=== PATIENT | female | born 1975 | race Two or more races ===

== ENCOUNTER 2025-01-10 17:28 | Inpatient (IN) | payer OTHER ==
[~2025-01-10] VITALS: Ht 167.6 cm; Wt 74.5 kg
--- NOTE | 2025-01-10 17:41 | ED.PDOC ---
HPI (NEURO) HPI Comments HPI: Poor Historian. 49-year-old female brought in by her fiance for evaluation of a near-syncope episode that happened approximately 2 hours prior to arrival. This was this despite the son who is 14 years old. Patient states that she felt everything is moving around her and fell to the ground without any head or neck injury. She denies any loss of consciousness. Denies any actual pain anywhere in her body. Patient has associated nausea and vomiting since then. Patient appears weak. Patient states she is otherwise healthy does not take any medications at home. Active vomiting here in the ED Vitals Temperature: 97.0F Respiratory rate: 17 SpO2: 98%RA Heart rate: 77 Blood pressure: 155/101 Past Medical History: Cervical cancer Past Surgical History: Leep procedure REVIEW OF SYSTEMS: CONSTITUTIONAL: Denies acute: fever, diaphoresis, chills, HEAD: Denies acute: headache, photophobia Eyes: Denies acute: Double vision, vision loss, eye pain, eye discharge. EARS: Denies acute: tinnitus, hearing loss, ear discharge, ear pain, THROAT: Denies acute: sore throat, swelling, difficulty swallowing , pain with swallowing, change in voice. NECK: Denies acute: neck pain, neck swelling, stiff neck. HEART: Denies acute : chest pain, palpitations, LUNGS: Denies acute: SOB, wheezing, cough, hemoptysis ABDOMEN: Denies acute: abdominal pain, diarrhea, melena , hematemesis, hematochezia SKIN: Denies acute: rash, redness, lesions, itchiness. EXTREMITIES: Denies acute: calf pain, numbness, tingling, weakness, denies pain in extremity. Denies acute: Low back pain. Neuro: Denies acute: focal neurological deficit, motor or sensory focal neurological deficit, tremors, seizure like activity, confusion, change in mental status, loss of bowel or bladder function, cauda equina like symptoms. : Denies acute: dysuria, hematuria, flank pain, increase in urinary frequency. PSYCH: Denies acute: hallucination, suicidal ideation, homicidal ideation. FEMALE: Denies acute: abnormal vaginal bleeding, foul odor, unusual discharge. PHYSICAL EXAM: General: [id number] acute distress, awake and alert. Head: normocephalic, atraumatic. Neck: supple, trachea is midline, no swelling. Throat: Normal phonation. Eyes:, no erythema, no purulent discharge, no proptosis, no icterus. Heart: regular rate, regular rhythm, no significant murmur appreciated. Lungs: no apparent respiratory distress, Able to speak in full sentences. No wheezing, no rhonchi, no crackles. No stridors Clear to auscultation bilaterally. Abdomen: non tender to palpation, non distended, soft, no guarding, no rebound, + bowel sounds. Neuro: Awake, Alert, oriented to name, self, situation, follows commands GCS=15. Speech is normal. Skin: no petechia, no purpura, no cyanosis, non-pale, not jaundice. Lower extremities: --no - Pitting edema no deformity, no focal swelling, no calf TTP. Makes eye contact. moves all four extremities. Face: no apparent facial droop. PERRLA, EOM-I CN 2-12 are grossly intact, No nystagmus. No nuchal rigidity, Kernig's sign, Brudzinski's sign, no meningeal signs. 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 Was a procedure done?: No Differential Diagnosis (SZ) CVA: SAH General Weakness: Anemia, CVA, Dehydration, Dysrhythmia, Electrolyte imbalance, Encephalopathy, Guillain-Whitefield, Hypoglycemia, Hypotension, Hypovolemia, Labyrinthitis, Meniere's disease, Myasthenia gravis, Myocardial infarction, Pulmonary embolus, Renal failure, Repiratory failure, TIA, VBI, Vertigo: central, Vertigo: peripheral, Vestibular neuronitis X-Ray, Labs, Meds, VS Vital Signs Date Time Temp Pulse Resp B/P (MAP) Pulse Ox O2 Delivery O2 Flow Rate FiO2 01/10/25 21:35 87 16 100 Room Air* 0 21 21 01/10/25 21:20 97.7 82 22 149/109 (122) 100 97.7 01/10/25 17:44 97.0 77 17 155/101 (119) 98 97.0 Lab Test 01/10/25 21:30 01/10/25 21:02 01/10/25 20:07 01/10/25 19:05 Range/Units Urine Color Light-yellow Yellow Urine Clarity Turbid H Clear Urine pH 7.5 5.0-9.0 Urine Specific [place] 1.014 1.001-1.035 Urine Protein Trace H Negative Urine Ketones Negative Negative Urine Blood Negative Negative /uL Urine Nitrite Negative Negative Urine Bilirubin Negative Negative Urine Urobilinogen Normal Negative mg/dL Urine Leukocyte Esterase Negative Negative /uL Urine RBC 2 0 - 4 /hpf Urine Microscopic WBC 1 0-5 /HPF Urine Squamous Epithelial Cells None seen <5 /hpf Urine Bacteria None seen None Seen /hpf Urine Yeast (Budding) Occasional None Seen /hpf Urine Glucose 1+ H Normal mg/dL Urine Test Negative Negative Urine Opiates Screen Neg NEGATIVE Urine Fentanyl Screen Neg NEGATIVE Urine Barbiturates Screen Neg NEGATIVE Urine Phencyclidine Screen Neg NEGATIVE Urine Amphetamines Screen Neg NEGATIVE Urine Benzodiazepines Screen Neg NEGATIVE Urine Cocaine Screen Neg NEGATIVE Urine Cannabinoids Screen Neg NEGATIVE Chlamydia trachomatis (BOOKER) Pending Neisseria gonorrhoeae (BOOKER) Pending Troponin I High Sensitivity < 3 L < 3 L </=34 ng/L C-Reactive Protein High Sensitivity 0.16 <1.0 mg/dL Lactic Acid Level 3.7 *H 0.4-2.0 mmol/L Test 01/10/25 18:08 Range/Units White Blood Count 15.1 H 4.4-10.8 10^3/uL Red Blood Count 4.96 4.0-5.20 10^6/uL Hemoglobin 13.8 12.2-16.2 g/dL Hematocrit 41.4 36.0-46.0 % Mean Corpuscular Volume 83.5 80.0-100.0 fL Mean Corpuscular Hemoglobin 27.8 L 28.0-32.0 pg Mean Corpuscular Hemoglobin Concent 33.3 32.0-36.0 g/dL Red Cell Distribution Width 13.4 11.8-14.3 % Platelet Count 250 140-450 10^3/uL Mean Platelet Volume 8.5 6.9-10.8 fL Neutrophils (%) (Auto) 80.0 37.0-80.0 % Lymphocytes (%) (Auto) 15.1 10.0-50.0 % Monocytes (%) (Auto) 4.4 0.0-12.0 % Eosinophils (%) (Auto) 0.2 0.0-7.0 % Basophils (%) (Auto) 0.3 0.0-2.0 % Neutrophils # (Auto) 12.1 H 1.6-8.6 10 ^3/uL Lymphocytes # (Auto) 2.3 0.4-5.4 10 ^3/uL Monocytes # (Auto) 0.7 0-1.3 10 ^3/uL Eosinophils # (Auto) 0 0-0.8 10 ^3/uL Basophils # (Auto) 0 0-0.2 10 ^3/uL Nucleated Red Blood Cells 0.0 % Sodium Level 141 136-145 mmol/L Potassium Level 3.6 3.5-5.1 mmol/L Chloride Level 106 98-107 mmol/L Carbon Dioxide Level 25 20-31 mmol/L Anion Gap 10 5-15 Blood Urea Nitrogen 11 9-23 mg/dL Creatinine 0.63 0.550-1.02 mg/dL Glomerular Filtration Rate Calc 107 >90 mL/min BUN/Creatinine Ratio 17.5 10.0-20.0 Serum Glucose 152 H 74-106 mg/dL Lactic Acid Level 3.4 *H 0.4-2.0 mmol/L Calcium Level 10.1 8.7-10.4 mg/dL Magnesium Level 1.8 1.6-2.6 mg/dL Total Bilirubin 0.5 0.2-1.0 mg/dL Aspartate Amino Transferase (AST) 26 13-40 U/L Alanine Aminotransferase (ALT) 63 H 7-40 U/L Alkaline Phosphatase 127 H 46-116 U/L Troponin I High Sensitivity < 3 L </=34 ng/L Total Protein 7.9 5.7-8.2 g/dL Albumin 5.1 H 3.2-4.8 g/dL HIV (1&2) Antibody Pending Current Medications Medications (Trade) Dose Ordered Sig/Carlos Route Start Time Stop Time Status Last Admin Sodium Chloride 1,000 ml @ 1,000 mls/hr Q1H ONCE IV 01/10/25 17:45 01/10/25 18:44 DC 01/10/25 21:00 Ondansetron HCl (Zofran) 8 mg ONCE ONCE IV 01/10/25 17:45 01/10/25 17:46 DC 01/10/25 21:27 Meclizine HCl (Antivert Tablet) 25 mg ONCE ONCE PO 01/10/25 17:45 01/10/25 17:46 DC 01/10/25 21:27 Ceftriaxone Sodium 50 ml @ 100 mls/hr ONCE ONCE IV 01/10/25 19:00 01/10/25 19:29 DC 01/10/25 21:22 Sodium Chloride 1,000 ml @ 1,000 mls/hr Q1H ONCE IV 01/10/25 20:00 01/10/25 20:59 DC 01/10/25 22:00 [place] [id number] Ph: [phone] DIAGNOSTIC IMAGING Diagnostic Imaging Report : [id number] Signed PATIENT: ARAMIS NJ ACCT: [id number] UNIT: [id number] : 1975 LOC: ER ROOM / BED: / AGE / SEX: 49 / F ADM STATUS: REG ER SERVICE 174 ORDERING PHYSICIAN: ESSIE BATISTA DO PROCEDURE(s): HWOCT - HEAD WITHOUT CONTRAST REASON: dizzy ORDER NUMBER(s): [id number], ACCESSION NUMBER(s): [id number] EXAM: CT HEAD WITHOUT CONTRAST INDICATION: dizzy TECHNIQUE: CT of the head without intravenous contrast. Radiation Dose Information: CT Dose: CTDI volume is 55.11 mGy. Dose-length product is 1086.04 mGy*cm The dose indicators for CT are the volume Computed Tomography (CT) Dose Index (CTDIvol) and the Dose Length Product (DLP), and are measured in units of mGy and mGy-cm, respectively. These indicators are not patient dose, but values generated from the CT scanner acquisition factors. The report includes radiation exposure data for exposures received during this examination. COMPARISON: None FINDINGS: There is no evidence of acute intracranial hemorrhage, extra-axial collection, mass effect, midline shift, herniation or hydrocephalus. The ventricles, sulci and cisterns are age appropriate. The quintana-white differentiation is intact. Patchy periventricular and subcortical white matter hypoattenuation is nonspecific but may be related to small vessel ischemic disease. The visualized paranasal sinuses and mastoid air cells are clear. The surrounding soft tissues and osseous structures are unremarkable. IMPRESSION: 1. No acute intracranial hemorrhage 2. No CT findings of territorial ischemia. 3. No CT findings of displaced skull fracture. ATED BY: JOSSELINE KOLB Jr., DO DICTATED DATE/TIME: 01/10/251810 SIGNED BY: JOSSELINE KOLB Jr., DO SIGNED DATE/TIME: 01/10/251810 CC: [place] [address] Ph: [phone] DIAGNOSTIC IMAGING Diagnostic Imaging Report : [id number] Signed PATIENT: ARAMIS NJ ACCT: [id number] UNIT: [id number] : 1975 LOC: ER ROOM / BED: / AGE / SEX: 49 / F ADM STATUS: REG ER SERVICE 41 ORDERING PHYSICIAN: ESSIE BATISTA DO PROCEDURE(s): CXRP - CHEST PORTABLE REASON: dizzy ORDER NUMBER(s): [id number], ACCESSION NUMBER(s): [id number] CHEST RADIOGRAPH Indication: dizzy Technique: Single frontal view of the chest was obtained COMPARISON: None FINDINGS: Lines and Tubes: None Lungs: Clear Pleura: No effusion. No pneumothorax. Cardiomediastinal contours: Unremarkable Bones: Unremarkable IMPRESSION: No acute disease. ATED BY: LONNIE HANNAH MD DICTATED DATE/TIME: 01/10/251819 SIGNED BY: LONNIE HANNAH MD SIGNED DATE/TIME: 01/10/251819 CC: Time of 1ST Reevaluation: 18:00 Reevaluation 1ST: Unchanged Time of 2ND Reevaluation: 02:19 Reevaluation 2ND: Improved Patient Education/Counseling: Diagnosis, Treatment Family Education/Counseling: Diagnosis, Treatment Comments Patient presented with the above HPI.---dizziness/nausea and vomiting/generalized weakness---workup was initiated. patient was found with the above mentioned diagnosis. the following medications were ordered: please refer to order lists of meds and tests obtained by myself Dr. Batista. Patient ED course and VS have been stabilized. Patient has been reassessed in the ED and remained in a stable condition. Pertinent incidental findings were discussed with the patient and/or family. Patient/family voices understanding and is agreeable with plan. Patient has been observed in the ED adequate length of time to insure improvement/stability. Escalation of care considered: Consideration of escalation to observation or admission Patient was ADMITTED to the medicine team for further evaluation and treatment of their presentation. All the reports of any imaging studies that were ordered by myself were reviewed by myself. Departure 1 Departure Time of Disposition: 19:55 Impression: Primary Impression: Near syncope Additional Impressions: Generalized weakness Leukocytosis Disposition: ADMITTED INPATIENT Admit to: [facility] Condition: Guarded Discharged With: Self Critical Care Note Critical Care Time?: Yes (35 min-critical care time only) Heart Score Heart Score: Heart Score Response (Comments) Value History Slightly Suspicious 0 EKG Normal 0 Age 45-64 1 Risk Factors No known risk factors 0 Troponin Normal limit 0 Total 1 I personally scribed for ESSIE BATISTA DO ([email or web address]) on 01/10/25 at 17:41. Electronically submitted by Jasvir Collins ([email or web address]). I personally scribed for ESSIE BATISTA DO ([email or web address]) on 01/10/25 at 18:17. Electronically submitted by Corby Valentino ([email or web address]). I personally scribed for ESSIE BATISTA DO ([email or web address]) on 01/10/25 at 20:14. Electronically submitted by Corby Valentino ([email or web address]). I personally scribed for ESSIE BATISTA DO ([email or web address]) on 01/10/25 at 22:43. Elect ronically submitted by Corby Valentino ([email or web address]). ESSIE BATISTA DO Jan 10, 2025 17:41
--- NOTE | 2025-01-10 17:48 | ECG ---
[facility] Test Date: 2025-01-10 Test Time: 17:44:35 Pat Name: ARAMIS NJ Department: ER Room: [facility] Gender: F Mandolin Repairer: NICOLAS : 1975 Requested By: ESSIE BATISTA Order Number: [id number] Reading MD: Kaiser Mayer Measurements Intervals [place] Rate: 76 P: 20 SC: 175 QRS: 19 QRSD: 105 T: 13 QT: 426 QTc: 480 Interpretive Statements Sinus rhythm Electronically Signed On 01-12-2025 22:35:37 PDT by Kaiser Mayre Please click the below link to view image of tracing.
--- NOTE | 2025-01-10 18:14 | DVH ---
EXAM: CT HEAD WITHOUT CONTRAST INDICATION: dizzy TECHNIQUE: CT of the head without intravenous contrast. Radiation Dose Information: CT Dose: CTDI volume is 55.11 mGy. Dose-length product is 1086.04 mGy*cm The dose indicators for CT are the volume Computed Tomography (CT) Dose Index (CTDIvol) and the Dose Length Product (DLP), and are measured in units of mGy and mGy-cm, respectively. These indicators are not patient dose, but values generated from the CT scanner acquisition factors. The report includes radiation exposure data for exposures received during this examination. COMPARISON: None FINDINGS: There is no evidence of acute intracranial hemorrhage, extra-axial collection, mass effect, midline s hift, herniation or hydrocephalus. The ventricles, sulci and cisterns are age appropriate. The quintana-white differentiation is intact. Patchy periventricular and subcortical white matter hypoattenuation is nonspecific but may be related to small vessel ischemic disease. The visualized paranasal sinuses and mastoid air cells are clear. The surrounding soft tissues and osseous structures are unremarkable. IMPRESSION: 1. No acute intracranial hemorrhage 2. No CT findings of territorial ischemia. 3. No CT findings of displaced skull fracture.
--- NOTE | 2025-01-10 18:22 | DVH ---
CHEST RADIOGRAPH Indication: dizzy Technique: Single frontal view of the chest was obtained COMPARISON: None FINDINGS: Lines and Tubes: None Lungs: Clear Pleura: No effusion. No pneumothorax. Cardiomediastinal contours: Unremarkable Bones: Unremarkable IMPRESSION: No acute disease.
[2025-01-10 18:40] LABS: Anion Gap 10 (5-15); Aspartate Aminotransferase 26 U/L (13-40); BUN/Creatinine Ratio 17.5 (10.0-20.0); Basophils # (auto) 0 10 ^3/uL (0-0.2); Basophils % (auto) 0.3 % (0.0-2.0); Bilirubin, Total 0.5 mg/dL (0.2-1.0); Blood Urea Nitrogen 11 mg/dL (9-23); Calcium 10.1 mg/dL (8.7-10.4); Carbon Dioxide 25 mmol/L (20-31); Chloride 106 mmol/L (98-107); Eosinophils # (auto) 0 10 ^3/uL (0-0.8); Eosinophils % (auto) 0.2 % (0.0-7.0); Hematocrit 41.4 % (36.0-46.0); Hemoglobin 13.8 g/dL (12.2-16.2); Lymphocytes # (auto) 2.3 10 ^3/uL (0.4-5.4); Lymphocytes % (auto) 15.1 % (10.0-50.0); Magnesium 1.8 mg/dL (1.6-2.6); Mean Corpuscular Hemoglobin 27.8 pg (28.0-32.0); Mean Corpuscular Hgb Conc. 33.3 g/dL (32.0-36.0); Mean Corpuscular Volume 83.5 fL (80.0-100.0); Monocytes # (auto) 0.7 10 ^3/uL (0-1.3); Monocytes % (auto) 4.4 % (0.0-12.0); Neutrophils # (auto) 12.1 10 ^3/uL (1.6-8.6); Platelet Count (auto) 250 10^3/uL (140-450); Potassium 3.6 mmol/L (3.5-5.1); Red Blood Cells 4.96 10^6/uL (4.0-5.20); Red Cell Distribution Width 13.4 % (11.8-14.3); Sodium 141 mmol/L (136-145); Total Protein 7.9 g/dL (5.7-8.2); White Blood Cell 15.1 10^3/uL (4.4-10.8)
[2025-01-10 18:47] LABS: Alanine Aminotransferase 63 U/L (7-40); Albumin 5.1 g/dL (3.2-4.8); Alkaline Phosphatase 127 U/L (46-116); Glucose 152 mg/dL (74-106)
[2025-01-10 18:50] LABS: Lactic Acid w/Reflex 3.4 mmol/L (0.4-2.0)
[2025-01-10] MEDS: SODIUM CHLORIDE 0.9% 1,000 ML IV ONE ×2 (21:00→22:00)
[2025-01-10] MEDS: cefTRIAXone 1GM/50ML D5W 50 ML IV ONE (21:22)
[2025-01-10] MEDS: MECLIZINE HCL 25 MG TAB PO ONE (21:27)
[2025-01-10] MEDS: ONDANSETRON HCL 4 MG/2 ML VIAL IV ONE (21:27)
[2025-01-10 21:35] VITALS: PULSE 87; RESP 16; O2SAT 100
[2025-01-10 22:03] LABS: Urine Bacteria None Seen /hpf (None Seen)
[2025-01-10 22:13] LABS: Urine Blood Negative /uL (Negative); Urine Budding Yeast OCCASIONAL /hpf (None Seen); Urine Clarity Turbid (Clear); Urine Color Light-Yellow (Yellow); Urine Protein, UAD TRACE (Negative); Urine Specific Gravity 1.014 (1.001-1.035); Urine Squamous Epithelial Cell None Seen /hpf (<5); Urine Urobilinogen Normal (Negative); Urine WBC 1 /HPF (0-5); Urine pH 7.5 (5.0-9.0)
--- NOTE | 2025-01-10 22:26 | DVHHPRES ---
History of Present Illness Resident Creating Document: BA SUMMERS RESIDENT Reason for Visit: PRESYNCOPE History of Present Illness Patient is a 49-year-old female with a past medical history significant for cervical cancer s/p LEEP ( 2019) presented to the ED complaining of dizziness, vertigo, nausea, vomiting and generalized weakness that started this afternoon. Patient says, she everything around her feels like is moving and she is unable to stand thus prompting the visit. Patient has chills and neck pains, but denies fever, chest pain, palpitation, shortness of breaths, diarrhea or any recent exposure disease exposure. Lab work reveal leukocytosis and lactic acidosis. Urinalysis, chest x-ray, CT head all negative. Pending Blood culture and infectious disease workup. Past medical history: Cervical cancer Past surgical history: Status post LEEP, Social history: Last Pap smear was 5 years ago Medication: None Review of Systems Constitutional: Yes: Chills, Malaise, Other (HEADACHE); No: Fever, Sweats, Weakness Eyes: Pain, Other (headache); No: Vision change, Conjunctivae inflammation, Eyelid inflammation, Redness ENT: No: Ear pain, Ear discharge, Nose pain, Nose discharge, Nose congestion, Mouth pain, Mouth swelling, Throat pain, Throat swelling, Other Respiratory: No: Cough, Dry, Shortness of breath, SOB with excertion, Wheezing, Hemoptysis, Pleuritic Pain, Sputum, Wheezing, Other Cardiovascular: Lt Headedness; No: Chest Pain, Palpitations, Orthopnea, Paroxysmal Noc. Dyspnea, Edema, Other Gastrointestinal: No: Nausea, Vomiting, Abdominal Pain, Diarrhea, Constipation, Melena, Hematochezia, Other Genitourinary: No Dysuria, No Frequency, No Incontinence, No Hematuria, No Retention, No Other Musculoskeletal: No: other, neck pain, shoulder pain, arm pain, back pain, hand pain, leg pain, foot pain Skin: No: Rash, Lesions, Jaundice, Bruising, Other Neurological: No: Weakness, Numbness, Incoordination, Change in speech, Confusion, Seizures, Other Allergies: Coded Allergies: NO KNOWN ALLERGIES (Unverified , 01/10/25) Exam Vital Signs Vital Signs Date Time Temp Pulse Resp B/P (MAP) Pulse Ox O2 Delivery O2 Flow Rate FiO2 01/10/25 21:35 87 16 100 Room Air* 0 21 21 01/10/25 21:20 97.7 149/109 (122) 97.7 Exam General Appearance: Alert, Oriented X3, Cooperative, No acute distress HEENT: Atraumatic, PERRLA, EOMI, Mucous membrane moist/pink Respiratory: Clear to auscultation, Normal air movement Cardiovascular: Regular rate, Normal S1, Normal S2, No murmurs, no chest wall tenderness Abdominal: NO distention, no tenderness, bowel sounds present, no scars noted Extremities: No clubbing, No cyanosis, No edema, Normal pulses, No tenderness/swelling Skin: No rashes, No breakdown, No significant lesion Neuro: Negative nuchal rigidity, Bruzinsky or Kernig sign Psych/Mental Status: Mental status NL, Mood NL Labs/Xrays Labs Test 01/10/25 21:30 01/10/25 21:02 01/10/25 20:07 01/10/25 18:08 Range/Units Urine Color Light-yellow Yellow Urine Clarity Turbid H Clear Urine pH 7.5 5.0-9.0 Urine Specific [place] 1.014 1.001-1.035 Urine Protein Trace H Negative Urine Ketones Negative Negative Urine Blood Negative Negative /uL Urine Nitrite Negative Negative Urine Bilirubin Negative Negative Urine Urobilinogen Normal Negative mg/dL Urine Leukocyte Esterase Negative Negative /uL Urine RBC 2 0 - 4 /hpf Urine Microscopic WBC 1 0-5 /HPF Urine Squamous Epithelial Cells None seen <5 /hpf Urine Bacteria None seen None Seen /hpf Urine Yeast (Budding) Occasional None Seen /hpf Urine Glucose 1+ H Normal mg/dL Urine Test Negative Negative Troponin I High Sensitivity < 3 L </=34 ng/L Lactic Acid Level 3.7 *H 0.4-2.0 mmol/L White Blood Count 15.1 H 4.4-10.8 10^3/uL Red Blood Count 4.96 4.0-5.20 10^6/uL Hemoglobin 13.8 12.2-16.2 g/dL Hematocrit 41.4 36.0-46.0 % Mean Corpuscular Volume 83.5 80.0-100.0 fL Mean Corpuscular Hemoglobin 27.8 L 28.0-32.0 pg Mean Corpuscular Hemoglobin Concent 33.3 32.0-36.0 g/dL Red Cell Distribution Width 13.4 11.8-14.3 % Platelet Count 250 140-450 10^3/uL Mean Platelet Volume 8.5 6.9-10.8 fL Neutrophils (%) (Auto) 80.0 37.0-80.0 % Lymphocytes (%) (Auto) 15.1 10.0-50.0 % Monocytes (%) (Auto) 4.4 0.0-12.0 % Eosinophils (%) (Auto) 0.2 0.0-7.0 % Basophils (%) (Auto) 0.3 0.0-2.0 % Neutrophils # (Auto) 12.1 H 1.6-8.6 10 ^3/uL Lymphocytes # (Auto) 2.3 0.4-5.4 10 ^3/uL Monocytes # (Auto) 0.7 0-1.3 10 ^3/uL Eosinophils # (Auto) 0 0-0.8 10 ^3/uL Basophils # (Auto) 0 0-0.2 10 ^3/uL Nucleated Red Blood Cells 0.0 % Sodium Level 141 136-145 mmol/L Potassium Level 3.6 3.5-5.1 mmol/L Chloride Level 106 98-107 mmol/L Carbon Dioxide Level 25 20-31 mmol/L Anion Gap 10 5-15 Blood Urea Nitrogen 11 9-23 mg/dL Creatinine 0.63 0.550-1.02 mg/dL Glomerular Filtration Rate Calc 107 >90 mL/min BUN/Creatinine Ratio 17.5 10.0-20.0 Serum Glucose 152 H 74-106 mg/dL Calcium Level 10.1 8.7-10.4 mg/dL Magnesium Level 1.8 1.6-2.6 mg/dL Total Bilirubin 0.5 0.2-1.0 mg/dL Aspartate Amino Transferase (AST) 26 13-40 U/L Alanine Aminotransferase (ALT) 63 H 7-40 U/L Alkaline Phosphatase 127 H 46-116 U/L Total Protein 7.9 5.7-8.2 g/dL Albumin 5.1 H 3.2-4.8 g/dL Assessment/Plan Assessment/Plan Sepsis --> leukocytosis and lactic acidosis --> rule out infectious cause --> pending HIV, Chlamydia and Gonorrhea,syphilis --> IV fluid --> Ceftriaxone Possible Benign paroxysmal positional vertigo --> recommend Graciela manual --> Negative meningeal signs Prediabetes --> A1c 6.2 --> lifestyle modification Transaminitis --> Ordered hepatic panel History of Cervical cancer s/p LEEP -->last pap smear 5 years ago. Diet: As can tolerate phylaxis: Lovenox Goal of care discussed for more than 30 minutes clinical in full code Case and plan discussed with Dr. Huynh Plan discussed with: Patient, Spouse Date of Service: Jan 10, 2025 Billing Provider: MIKI HUYNH MD Common Visit Codes: [id number] INP/OBS CARE (HIGH) BA SUMMERS RESIDENT Jan 10, 2025 22:26 MIKI HUYNH MD Jan 11, 2025 17:38
[2025-01-10 22:27] LABS: Amphetamine Screen, Urine Neg (NEGATIVE); Barbiturate Scree,Urine Neg (NEGATIVE); Benzodiazephine Screen, Urine Neg (NEGATIVE); Cannabinoid Screen, Urine Neg (NEGATIVE); Cocaine Screen, Urine Neg (NEGATIVE); Opiate Scree,Urine Neg (NEGATIVE); Phencyclidine Screen, Urine Neg (NEGATIVE)
[2025-01-10] MEDS ORDERED: MORPHINE SULFATE INJ 2 MG/ml SYRG IV PRN (22:30)
[2025-01-10] MEDS ORDERED: HYDROcodone-ACET 5/325MG TAB PO PRN (22:30)
[2025-01-10 22:59] LABS: Basophils # (auto) 0 10 ^3/uL (0-0.2); Basophils % (auto) 0.1 % (0.0-2.0); Eosinophils # (auto) 0 10 ^3/uL (0-0.8); Eosinophils % (auto) 0.1 % (0.0-7.0); Hemoglobin 13.3 g/dL (12.2-16.2); Lymphocytes % (auto) 7.8 % (10.0-50.0); Mean Corpuscular Hemoglobin 27.5 pg (28.0-32.0); Mean Corpuscular Hgb Conc. 32.5 g/dL (32.0-36.0); Mean Corpuscular Volume 84.7 fL (80.0-100.0); Monocytes # (auto) 0.1 10 ^3/uL (0-1.3); Monocytes % (auto) 1.1 % (0.0-12.0); Neutrophils # (auto) 11.6 10 ^3/uL (1.6-8.6); Neutrophils % (auto) 90.9 % (37.0-80.0); Platelet Count (auto) 212 10^3/uL (140-450); Red Blood Cells 4.84 10^6/uL (4.0-5.20); Red Cell Distribution Width 13.9 % (11.8-14.3); White Blood Cell 12.8 10^3/uL (4.4-10.8)
[2025-01-10 23:30] LABS: Erythrocyte Sedimentation Rate 13 mm/hr (0-20)
[2025-01-11] MEDS ORDERED: VANCOMYCIN PER PHARMACY 0 MG IV SCH
[2025-01-11 01:17] LABS: Lactic Acid w/Reflex 2.8 mmol/L (0.4-2.0)
[2025-01-11 05:55] VITALS: PULSE 92; RESP 17; O2SAT 97
[2025-01-11 06:04] LABS: Anion Gap 11 (5-15); Aspartate Aminotransferase 21 U/L (13-40); BUN/Creatinine Ratio 9.5 (10.0-20.0); Calcium 9.8 mg/dL (8.7-10.4); Carbon Dioxide 24 mmol/L (20-31); Chloride 104 mmol/L (98-107); Potassium 3.8 mmol/L (3.5-5.1); Sodium 139 mmol/L (136-145); Total Protein 8.1 g/dL (5.7-8.2)
[2025-01-11 06:05] LABS: Bilirubin, Total 0.8 mg/dL (0.2-1.0)
[2025-01-11 06:06] LABS: Alkaline Phosphatase 133 U/L (46-116); Blood Urea Nitrogen 6 mg/dL (9-23); Glucose 150 mg/dL (74-106)
[2025-01-11 06:07] LABS: Alanine Aminotransferase 58 U/L (7-40); Albumin 5.2 g/dL (3.2-4.8)
[2025-01-11 06:46] LABS: Bilirubin, Direct 0.2 mg/dL (<0.3); Bilirubin, Total 0.8 mg/dL (0.2-1.0); Total Protein 8.1 g/dL (5.7-8.2)
[2025-01-11 06:50] LABS: Albumin 5.1 g/dL (3.2-4.8)
[2025-01-11 08:00] VITALS: PULSE 99; RESP 12; O2SAT 99
[2025-01-11 08:51] LABS: INR 0.97 (0.9-1.15); Partial Thromboplastin Time 25.9 SEC (24.5-34.5); Prothrombin Time 10.3 sec (9.3-11.8)
[2025-01-11] MEDS: cefTRIAXone 1GM/50ML D5W 50 ML IV SCH (09:43)
[2025-01-11] MEDS: VANCOMYCIN 1GM/250ML KIT 250 ML IV SCH (11:30)
[2025-01-11] MEDS: SODIUM CHLORIDE 0.9% 1,000 ML IV SCH (11:30)
--- NOTE | 2025-01-11 11:50 | DVHPNRES ---
Progress Note Date Seen: Jan 11, 2025 Resident Creating Document: DAWSON INMAN RESIDENT Medical Necessity Reason Pt with a Central, PICC or Fol: No Subjective Review of Systems Patient is a 49-year-old female with a past medical history significant for cervical cancer s/p LEEP ( 2019) presented to the ED complaining of dizziness, vertigo, nausea, vomiting and generalized weakness that started this afternoon. She states everything around her feels like is moving and she is unable to stand up thus prompting the visit. Patient has chills and neck pains, but denies fever, chest pain, palpitation, shortness of breaths, diarrhea or any recent exposure disease exposure. Patient was seen and examined on the bedside. She is alert oriented x3. Complaint of dizziness, nausea whenever she is moving. No other active complaints. Constitutional: No: Fever, Chills, Sweats, Weakness, Malaise, Other Eyes: No: Pain, Vision change, Conjunctivae inflammation, Eyelid inflammation, Other, Redness ENT: No: Ear pain, Ear discharge, Nose pain, Nose discharge, Nose congestion, Mouth pain, Mouth swelling, Throat pain, Throat swelling, Other Respiratory: Shortness of breath, improving No: Cough, Dry,Wheezing, Hemoptysis, Pleuritic Pain, Sputum, Wheezing, Other Cardiovascular: Lt Headedness, No: Chest Pain, Palpitations, Orthopnea, Paroxysmal Noc. Dyspnea, Edema, Lt Headedness, Other Gastrointestinal: No: Nausea, Vomiting, Abdominal Pain, Diarrhea, Constipation, Melena, Hematochezia, Other Musculoskeletal: No: other, neck pain, shoulder pain, arm pain, back pain, hand pain, leg pain, foot pain Neurological:; No: Weakness, Numbness, Incoordination, Change in speech, Confusion, Seizures Objective vital signs Vital Sign Date Time Temp Pulse Resp B/P (MAP) Pulse Ox O2 Delivery O2 Flow Rate FiO2 01/11/25 10:00 77 12 149/91 (110) 98 01/11/25 08:00 98.3 98.3 01/11/25 08:00 Room Air* 0 21 medications Current Medications Medications Dose Ordered Sig/Carlos Route Start Time Stop Time Status Last Admin Dose Admin Acetaminophen 650 mg Q6HP PRN PO 01/10/25 22:30 Acetaminophen/ Hydrocodone Bitart 1 tab Q4HP PRN PO 01/10/25 22:30 Morphine Sulfate 2 mg Q30M PRN IV 01/10/25 22:30 Vancomycin HCl 0 ml @ 0 mls/hr UD IV 01/11/25 00:00 Ceftriaxone Sodium 50 ml @ 100 mls/hr DAILY@09 IV 01/11/25 09:00 01/11/25 09:43 100 MLS/HR Metronidazole 100 ml @ 100 mls/hr Q8HR IV 01/11/25 14:00 UNV Meclizine HCl 25 mg Q8HPRN PRN PO 01/11/25 11:30 UNV Sodium Chloride 1,000 ml @ 75 mls/hr [id number] IV 01/11/25 11:30 UNV Examination Physical examination: General Appearance: Alert, Oriented X3, Cooperative, No acute distress HEENT: Atraumatic, PERRLA, EOMI, Mucous membrane moist/pink Respiratory: Clear to auscultation, Normal air movement Cardiovascular: Regular rate, Normal S1, Normal S2, No murmurs, no chest wall tenderness Abdominal: Normal bowel sounds, Soft, No tenderness, No hepatospenomegaly, No masses Extremities: No clubbing, No cyanosis, No edema, Normal pulses, No tenderness/swelling Skin: No rashes, No breakdown, No significant lesion Neuro: Normal gait, Normal speech, Strength at 5/5 X4 ext, Normal tone, Sensation intact, grossly intact cranial nerves. Psych/Mental Status: Mental status NL, Mood NL laboratory and microbiology Laboratory Tests 01/11/25 05:10 01/10/25 22:43 Test 01/11/25 05:10 Range/Units Serum Glucose 150 H 74-106 mg/dL Labs and/or images reviewed: Labs reviewed by me, Image(s) reviewed by me Problem List/Assessment/Plan Problem List/Assessment/Plan Assessment and plan: # Sepsis likely due to possible intra-abdominal infection # Possible gastroenteritis # Dizziness likely due to dehydration # Ruled out cholelithiasis/cholecystitis # Transaminitis likely due to dehydration - Patient was presented with tachycardia, leucocytosis and elevated lactic acid - NS 2 L IV bolus given - Orthostatic vital sign positive. - Clear liquid diet - IV normal saline @75 ml/hr - IV ceftriaxone 1 g daily and IV metronidazole 500 mg t.i.d. - IV Zofran 4 mg Q 8 p.r.n. # Prediabetes, HbA1C 6.1% - Counseled patient regarding low carb diet, lifestyle modification and physical exercise. # History of cervical cancer, s/p LEEP - Last pap smear was 5 yrs ago. PUD prophylaxis : Protonix DVT prophylaxis : Lovenox Code status : Full code Plan discussed with Dr. Sofia Plan discussed with: Patient, Other My Orders My Orders Orders - DAWSON INMAN Procedure Category Date Status Time Comprehensive LAB 01/11/25 In Process Hepatitis Panel 08:01 Orthostatic Vital ORDERS 01/11/25 Transmitted Signs 09:27 Gallbladder US 01/11/25 Logged 11:28 Metronidazole PHA 01/11/25 Logged 500mg/100ml (Flagyl 14:00 Meclizine Tablet PHA 01/11/25 Logged (Antivert Tablet) 11:30 Sodium Chloride 0.9% PHA 01/11/25 Logged 11:30 DAWSON INMAN RESIDENT Jan 11, 2025 11:50
--- NOTE | 2025-01-11 12:42 | DVH ---
INDICATION: Elevated liver enzymes TECHNIQUE: Multiple real-time sonographic images were obtained of the right upper quadrant. COMPARISON: None FINDINGS: The liver demonstrates increased echotexture without focal mass lesions. The liver measure s 14.5 cm. There is no intrahepatic or extrahepatic ductal dilatation. The common duct measures 0.4 cm. The gallbladder is without evidence of stone or sludge. The gallbladder wall measures 0.1 cm and is w ithin normal limits. The right kidney measures 10.1 cm. The right kidney is normal in contour, size, and shape. The echoge nicity is normal. There is no hydronephrosis. The pancreas is not well visualized due to overlying bowel gas. IMPRESSION: Hepatic steatosis.
[2025-01-11] MEDS: PANTOPRAZOLE 40 MG TAB PO ONE (15:35)
[2025-01-11] MEDS: metroNIDAZOLE 500MG/100ML 100 ML IV SCH (15:36)
[2025-01-11] MEDS: ACETAMINOPHEN 325 MG TAB PO PRN (15:36)
[2025-01-11 17:00] VITALS: BP 155/96; PULSE 87; RESP 16; TEMP 98.3; O2SAT 99
[2025-01-11 17:44] VITALS: BP 155/96; PULSE 87; RESP 16; TEMP 98.3; O2SAT 99
[2025-01-11 21:00] VITALS: BP 143/96; PULSE 93; RESP 17; TEMP 98.1; O2SAT 99
[2025-01-12] VITALS (8 sets, daily range): BP systolic 105–176; BP diastolic 66–108; PULSE 67–96; RESP 16–20; TEMP 97.7–98.4; O2SAT 94–100
[2025-01-12] MEDS: PANTOPRAZOLE 40 MG TAB PO SCH (06:00)
[2025-01-12 06:08] LABS: Basophils # (auto) 0 10 ^3/uL (0-0.2); Basophils % (auto) 0.3 % (0.0-2.0); Eosinophils # (auto) 0 10 ^3/uL (0-0.8); Eosinophils % (auto) 0.3 % (0.0-7.0); Hematocrit 38.3 % (36.0-46.0); Hemoglobin 13.4 g/dL (12.2-16.2); Lymphocytes # (auto) 3.6 10 ^3/uL (0.4-5.4); Lymphocytes % (auto) 35.2 % (10.0-50.0); Mean Corpuscular Hemoglobin 29.2 pg (28.0-32.0); Mean Corpuscular Hgb Conc. 35.1 g/dL (32.0-36.0); Mean Corpuscular Volume 83.3 fL (80.0-100.0); Monocytes # (auto) 0.9 10 ^3/uL (0-1.3); Monocytes % (auto) 8.8 % (0.0-12.0); Neutrophils # (auto) 5.6 10 ^3/uL (1.6-8.6); Neutrophils % (auto) 55.4 % (37.0-80.0); Platelet Count (auto) 234 10^3/uL (140-450); Red Cell Distribution Width 13.5 % (11.8-14.3); White Blood Cell 10.2 10^3/uL (4.4-10.8)
[2025-01-12 06:13] LABS: Albumin 4.7 g/dL (3.2-4.8); Alkaline Phosphatase 111 U/L (46-116); Anion Gap 9 (5-15); Aspartate Aminotransferase 17 U/L (13-40); BUN/Creatinine Ratio 13.1 (10.0-20.0); Bilirubin, Total 1.1 mg/dL (0.2-1.0); Calcium 9.8 mg/dL (8.7-10.4); Carbon Dioxide 25 mmol/L (20-31); Glucose 106 mg/dL (74-106); Sodium 143 mmol/L (136-145); Total Protein 7.4 g/dL (5.7-8.2)
[2025-01-12 06:17] LABS: Alanine Aminotransferase 49 U/L (7-40); Blood Urea Nitrogen 8 mg/dL (9-23); Chloride 109 mmol/L (98-107); Potassium 3.5 mmol/L (3.5-5.1)
[2025-01-12] MEDS: ONDANSETRON HCL 4 MG/2 ML VIAL IV PRN (06:38)
[2025-01-12] MEDS: LISINOPRIL 5 MG TAB PO SCH (09:36)
[2025-01-12] MEDS: ENOXAPARIN SOD 40 MG/0.4 ML SYRINGE SC SCH (10:00)
[2025-01-12] MEDS: hydrALAZINE HCL 20 MG/ML VL IV PRN (14:18)
[2025-01-12] MEDS: MECLIZINE HCL 25 MG TAB PO PRN (16:46)
--- NOTE | 2025-01-12 17:33 | DVHPNRES ---
Progress Note Date Seen: Jan 12, 2025 Resident Creating Document: DAWSON INMAN RESIDENT Medical Necessity Reason Pt with a Central, PICC or Fol: No Subjective Review of Systems Patient was seen and examined on the bedside. She is alert oriented x3. The patient had an syncopal episode with flashing on the way to washroom. Vital is now stable and patient is still complaining of nausea and dizziness. Objective vital signs Vital Sign Date Time Temp Pulse Resp B/P (MAP) Pulse Ox O2 Delivery O2 Flow Rate FiO2 01/12/25 17:02 98.0 89 17 131/76 (94) 98 98.0 01/12/25 08:00 Room Air* 0 21 Total Intake and Output 01/11/25 01/11/25 01/12/25 15:00 23:00 07:00 Intake Total 300 ml 100 ml 1340 ml Output Total 0 ml Balance 300 ml 100 ml 1340 ml medications Current Medications Medications Dose Ordered Sig/Carlos Route Start Time Stop Time Status Last Admin Dose Admin Acetaminophen 650 mg Q6HP PRN PO 01/10/25 22:30 01/11/25 21:14 650 MG Acetaminophen/ Hydrocodone Bitart 1 tab Q4HP PRN PO 01/10/25 22:30 Morphine Sulfate 2 mg Q30M PRN IV 01/10/25 22:30 Ceftriaxone Sodium 50 ml @ 100 mls/hr DAILY@09 IV 01/11/25 09:00 01/12/25 09:36 100 MLS/HR Metronidazole 100 ml @ 100 mls/hr Q8HR IV 01/11/25 14:00 01/12/25 14:17 100 MLS/HR Meclizine HCl 25 mg Q8HPRN PRN PO 01/11/25 11:30 01/12/25 16:46 25 MG Ondansetron HCl 4 mg Q6HPRN PRN IV 01/11/25 14:30 01/12/25 06:38 4 MG Pantoprazole Sodium 40 mg DAILY@0600 PO 01/12/25 06:00 Enoxaparin Sodium 40 mg DAILY SC 01/12/25 10:00 Lisinopril 5 mg DAILY PO 01/12/25 10:00 01/12/25 09:36 5 MG Hydralazine HCl 10 mg Q6HP PRN IV 01/12/25 13:15 01/12/25 14:18 10 MG Examination Physical examination: General Appearance: Alert, Oriented X3, Cooperative, mild distress HEENT: Atraumatic, PERRLA, EOMI, Mucous membrane moist/pink Respiratory: Clear to auscultation, Normal air movement Cardiovascular: Regular rate, Normal S1, Normal S2, No murmurs, no chest wall tenderness Abdominal: Normal bowel sounds, Soft, No tenderness, No hepatospenomegaly, No masses Extremities: No clubbing, No cyanosis, No edema, Normal pulses, No tenderness/swelling Skin: No rashes, No breakdown, No significant lesion Neuro: Normal gait, Normal speech, Strength at 5/5 X4 ext, Normal tone, Sensation intact, grossly intact cranial nerves Psych/Mental Status: Mental status NL, Mood NL laboratory and microbiology Laboratory Tests 01/12/25 05:18 Test 01/12/25 05:18 Range/Units Serum Glucose 106 74-106 mg/dL Microbiology Date/Time Source Procedure Growth Status 01/10/25 22:43 Blood Blood Culture - Preliminary NO GROWTH AFTER 24 HOURS OF INCUBATION. Resulted Labs and/or images reviewed: Labs reviewed by me, Image(s) reviewed by me Problem List/Assessment/Plan Problem List/Assessment/Plan Assessment and plan: # Sepsis likely due to possible intra-abdominal infection # Possible gastroenteritis # Dizziness likely due to dehydration # Ruled out cholelithiasis/cholecystitis # Transaminitis likely due to dehydration - Patient was presented with tachycardia, leucocytosis and elevated lactic acid - NS 2 L IV bolus given - Orthostatic vital sign positive. - Recommended Brigido hose - Clear liquid diet - IV normal saline @75 ml/hr - IV ceftriaxone 1 g daily and IV metronidazole 500 mg t.i.d. - IV Zofran 4 mg Q 8 p.r.n. - Meclizine 25 mg Q 8 p.r.n. # Prediabetes, HbA1C 6.1% - Counseled patient regarding low carb diet, lifestyle modification and physical exercise. # History of cervical cancer, s/p LEEP - Last pap smear was 5 yrs ago. PUD prophylaxis : Protonix DVT prophylaxis : Lovenox Code status : Full code Plan discussed with Dr. Sofia Plan discussed with: Patient, Other My Orders My Orders Orders - DAWSON INMAN Procedure Category Date Status Time Lisinopril Tablet PHA 01/12/25 In Process (Zestril Tablet) 10:00 Hydralazine Injection PHA 01/12/25 In Process (Apresoline Inject 13:15 Electrocardigram EKG 01/12/25 Logged 16:54 Dietary Evaluation Review Comments: diet as toleratedd when GI symptoms subsided. Expected Outcomes/Goals: gradual wt loss. DAWSON INMAN RESIDENT Jan 12, 2025 17:33
[2025-01-13 01:00] VITALS: BP 122/81; PULSE 83; TEMP 98; O2SAT 94
[2025-01-13 05:00] VITALS: BP 122/73; PULSE 76; RESP 18; TEMP 97.6; O2SAT 94
[2025-01-13 05:40] LABS: Basophils # (auto) 0 10 ^3/uL (0-0.2); Basophils % (auto) 0.5 % (0.0-2.0); Eosinophils # (auto) 0.1 10 ^3/uL (0-0.8); Eosinophils % (auto) 0.7 % (0.0-7.0); Hematocrit 41.6 % (36.0-46.0); Lymphocytes # (auto) 3.4 10 ^3/uL (0.4-5.4); Lymphocytes % (auto) 36.6 % (10.0-50.0); Mean Corpuscular Hgb Conc. 33.6 g/dL (32.0-36.0); Mean Corpuscular Volume 83.2 fL (80.0-100.0); Monocytes # (auto) 0.7 10 ^3/uL (0-1.3); Monocytes % (auto) 7.7 % (0.0-12.0); Neutrophils % (auto) 54.5 % (37.0-80.0); Nucleated Red Blood Cells % 0.1 %; Platelet Count (auto) 240 10^3/uL (140-450); Red Cell Distribution Width 13.5 % (11.8-14.3); White Blood Cell 9.2 10^3/uL (4.4-10.8)
[2025-01-13 05:54] LABS: Anion Gap 9 (5-15); Carbon Dioxide 27 mmol/L (20-31); Sodium 143 mmol/L (136-145)
[2025-01-13 05:55] LABS: Calcium 10.2 mg/dL (8.7-10.4)
[2025-01-13 06:00] LABS: BUN/Creatinine Ratio 14.3 (10.0-20.0); Blood Urea Nitrogen 11 mg/dL (9-23); Glucose 100 mg/dL (74-106)
[2025-01-13 06:06] LABS: Chloride 107 mmol/L (98-107); Potassium 3.5 mmol/L (3.5-5.1)
[2025-01-13 08:30] VITALS: BP 133/94; PULSE 78; RESP 16; TEMP 98.2; O2SAT 94
--- NOTE | 2025-01-13 09:46 | ECG ---
[facility] Test Date: 2025-01-12 Test Time: 17:14:32 Pat Name: ARAMIS [place] Department: Respiratoy Room: [address] [place] [address] 1 Gender: F Senior Attorney: [id number] : 1975 Requested By: DAWSON INMAN Order Number: [id number] Reading MD: Kaiser Mayer Measurements Intervals [place] Rate: 78 P: 24 NE: 166 QRS: 15 QRSD: 101 T: 28 QT: 417 QTc: 476 Interpretive Statements Sinus rhythm Electronically Signed On 01-15-2025 17:10:47 PDT by Kaiser Mayer Please click the below link to view image of tracing.
[2025-01-13 10:22] LABS: Hepatitis B Core Total AB Negative (Negative)
[2025-01-13 10:48] LABS: Hepatitis A Total Antibody Positive (Negative); Hepatitis B Surface Antibody Negative (Negative); Hepatitis B Surface Antigen Negative (Negative); Hepatitis C Antibody Negative (Negative)
[2025-01-13 12:53] VITALS: BP 144/82; PULSE 73; RESP 17; TEMP 98.3; O2SAT 96
[2025-01-13] MEDS ORDERED: LISI-275 PO (14:54)
[2025-01-13] MEDS ORDERED: AUG875T PO (14:54)
[2025-01-13] MEDS ORDERED: ZOFR4T PO (14:54)
--- NOTE | 2025-01-13 14:59 | DVHDS2 ---
Discharge Summary Date of Admission Jan 10, 2025 at 22:21 Date of Discharge: Jan 13, 2025 Labs/Diagnostic Data: Laboratory Results Test 01/13/25 05:12 01/12/25 05:18 01/11/25 06:36 01/11/25 05:10 White Blood Count 9.2 10^3/uL (4.4-10.8) Red Blood Count 5.00 10^6/uL (4.0-5.20) Hemoglobin 14.0 g/dL (12.2-16.2) Hematocrit 41.6 % (36.0-46.0) Mean Corpuscular Volume 83.2 fL (80.0-100.0) Mean Corpuscular Hemoglobin 28.0 pg (28.0-32.0) Mean Corpuscular Hemoglobin Concent 33.6 g/dL (32.0-36.0) Red Cell Distribution Width 13.5 % (11.8-14.3) Platelet Count 240 10^3/uL (140-450) Mean Platelet Volume 8.3 fL (6.9-10.8) Neutrophils (%) (Auto) 54.5 % (37.0-80.0) Lymphocytes (%) (Auto) 36.6 % (10.0-50.0) Monocytes (%) (Auto) 7.7 % (0.0-12.0) Eosinophils (%) (Auto) 0.7 % (0.0-7.0) Basophils (%) (Auto) 0.5 % (0.0-2.0) Neutrophils # (Auto) 5.0 10 ^3/uL (1.6-8.6) Lymphocytes # (Auto) 3.4 10 ^3/uL (0.4-5.4) Monocytes # (Auto) 0.7 10 ^3/uL (0-1.3) Eosinophils # (Auto) 0.1 10 ^3/uL (0-0.8) Basophils # (Auto) 0 10 ^3/uL (0-0.2) Nucleated Red Blood Cells 0.1 % Sodium Level 143 mmol/L (136-145) Potassium Level 3.5 mmol/L (3.5-5.1) Chloride Level 107 mmol/L (98-107) Carbon Dioxide Level 27 mmol/L (20-31) Anion Gap 9 (5-15) Blood Urea Nitrogen 11 mg/dL (9-23) Creatinine 0.77 mg/dL (0.550-1.02) Glomerular Filtration Rate Calc 93 mL/min (>90) BUN/Creatinine Ratio 14.3 (10.0-20.0) Serum Glucose 100 mg/dL (74-106) Calcium Level 10.2 mg/dL (8.7-10.4) Total Bilirubin 1.1 mg/dL (0.2-1.0) Aspartate Amino Transferase (AST) 17 U/L (13-40) Alanine Aminotransferase (ALT) 49 U/L (7-40) Alkaline Phosphatase 111 U/L (46-116) Total Protein 7.4 g/dL (5.7-8.2) Albumin 4.7 g/dL (3.2-4.8) Lactic Acid Level 1.3 mmol/L (0.4-2.0) Prothrombin Time 10.3 sec (9.3-11.8) Prothrombin Time INR 0.97 (0.9-1.15) Activated Partial Thromboplast Time 25.9 SEC (24.5-34.5) Hemoglobin A1c 6.1 % A1C (<5.7) Direct Bilirubin 0.2 mg/dL (<0.3) Hepatitis A Antibody Total Positive (Negative) Hepatitis B Surface Antigen Negative (Negative) Hepatitis B Surface Antibody Negative (Negative) Hepatitis B Core Total Antibody Negative (Negative) Hepatitis C Antibody Negative (Negative) Test 01/10/25 22:43 01/10/25 21:30 01/10/25 21:02 01/10/25 18:08 Erythrocyte Sedimentation Rate 13 mm/hr (0-20) Urine Color Light-yellow (Yellow) Urine Clarity Turbid (Clear) Urine pH 7.5 (5.0-9.0) Urine Specific [place] 1.014 (1.001-1.035) Urine Protein Trace (Negative) Urine Ketones Negative (Negative) Urine Blood Negative /uL (Negative) Urine Nitrite Negative (Negative) Urine Bilirubin Negative (Negative) Urine Urobilinogen Normal mg/dL (Negative) Urine Leukocyte Esterase Negative /uL (Negative) Urine RBC 2 /hpf (0 - 4) Urine Microscopic WBC 1 /HPF (0-5) Urine Squamous Epithelial Cells None seen /hpf (<5) Urine Bacteria None seen /hpf (None Seen) Urine Yeast (Budding) Occasional /hpf (None Urine Glucose 1+ mg/dL (Normal) Urine Test Negative (Negative) Urine Opiates Screen Neg (NEGATIVE) Urine Fentanyl Screen Neg (NEGATIVE) Urine Barbiturates Screen Neg (NEGATIVE) Urine Phencyclidine Screen Neg (NEGATIVE) Urine Amphetamines Screen Neg (NEGATIVE) Urine Benzodiazepines Screen Neg (NEGATIVE) Urine Cocaine Screen Neg (NEGATIVE) Urine Cannabinoids Screen Neg (NEGATIVE) Troponin I High Sensitivity < 3 ng/L (</=34) C-Reactive Protein High Sensitivity 0.16 mg/dL (<1.0) Magnesium Level 1.8 mg/dL (1.6-2.6) HIV (1&2) Antibody Negative (Negative) Other Laboratory Tests 01/13/25 05:12 Brief Hx & Hospital Course: HPI: 49-year-old female with a past medical history significant for cervical cancer s/p LEEP ( 2019) presented to the ED complaining of dizziness, vertigo, nausea, vomiting and generalized weakness that started this afternoon. Patient says, she everything around her feels like is moving and she is unable to stand thus prompting the visit. Patient has chills and neck pains, but denies fever, chest pain, palpitation, shortness of breaths, diarrhea or any recent exposure disease exposure. Lab work reveal leukocytosis and lactic acidosis. Summary: Patient presenting with dizziness, vertigo, nausea and vomiting. On exam she has right upper quadrant/epigastric tenderness. On presentation patient has leukocytosis 15.1, neutrophilia count high 12.1, tachypneic and tachycardic. Also has lactic acidosis 2.1. CXR we will concerns, head CT without any intracranial process, right upper quadrant gallbladder ultrasound showing hepatic steatosis. Patient gonorrhea/chlamydia test pending, hepatitis panel showing positive HAV antibody. Patient was admitted as sepsis due to intra-abdominal gastroenteritis infection. On exam mucous membranes dry, right upper quadrant/epigastric tenderness, no nystagmus, [place]-Hallpike negative. A1c 6.1. Patient was started on IV antibiotics for abdominal infection likely. Orthostatics were done and found to be orthostatic positive. Patient was given ample IV fluid resuscitation, Shawna hose ordered and repeat orthostatics is negative. Patient known to be hypertensive and no blood pressure medications, started lisinopril 5 mg. Patient starts tolerating p.o., improving unknown pain, Dizziness resolved, Ambulating, vital signs stable and ready for discharge as per plan below. Diagnosis: # Sepsis likely due to possible intra-abdominal infection # Possible gastroenteritis # Dizziness likely due to dehydration # lactic acidosis, resolved # leukocytosis, resolved #neutrophilia, resolved # Ruled out cholelithiasis/cholecystitis # Transaminitis likely due to dehydration # ALP elevated, resolved # Prediabetes, HbA1C 6.1% # History of cervical cancer, s/p LEEP Discharge plan: - take Augmentin 875 mg twice to be for five days - keep shawna hose on during ambulation -lisinopril 5 mg daily for hypertension, review medication need with PCP with the home recorded blood pressure - Zofran as needed for nausea - follow up with PCP to review discharge, reassess orthostatic blood pressures -continue with the home medications Condition at Discharge: Fair Final Diagnosis/Problems List # Sepsis likely due to possible intra-abdominal infection # Possible gastroenteritis # Dizziness likely due to dehydration # lactic acidosis, resolved # leukocytosis, resolved #neutrophilia, resolved # Ruled out cholelithiasis/cholecystitis # Transaminitis likely due to dehydration # ALP elevated, resolved # Prediabetes, HbA1C 6.1% # History of cervical cancer, s/p LEEP Discharge Disposition: Home Discharge Instruct/Medications Diet: Regular Activity: No Restrictions, As Tolerated Follow Up/Referral: pcp Medications: below Discharge Statement: "Patient was advised to return to the ER or call 911 if any headaches, dizziness, shortness of breath, chest pain, abdominal pain, bleeding, fevers, or worsening of medical condition. Patient was counseled about treatment plan, medications, possible side effects, patientverbalized understanding. All questions were answered to the best of my ability. This discharge took greater then 30 minutes in planning, reviewing documentation, counseling the patient, and discussing with other team members." Date of Service: Jan 13, 2025 Billing Provider: LESA BROOKS MD Common Visit Codes: 44983-PQL/OBS DISCH DAY >30min LESA BROOKS MD Jan 13, 2025 14:59
[2025-01-13 16:35] VITALS: BP 126/79; PULSE 77; RESP 18; TEMP 98.5; O2SAT 94
== END 2025-01-13 16:54 | disposition home or self-care (01) | DRG 872 ==
LOC: ER 17:28 → OVERFLOW 22:21 → EAST 01-11 16:31
PROVIDERS: ADMIT Student in an Organized Health Care Education/Training Program; ATTEND Student in an Organized Health Care Education/Training Program
DX: A41.9 Sepsis, unspecified organism (principal); E87.20 Acidosis, unspecified; A09 Infectious gastroenteritis and colitis, unspecified; R73.03 Prediabetes; E86.0 Dehydration; R74.01 Elevation of levels of liver transaminase levels; Z85.41 Personal history of malignant neoplasm of cervix uteri
CPT/HCPCS: 36415; 70450; 71045; 76705; 80048; 80053; 80076; 80307; 81001; 81025; 83036; 83605; 83735; 84484; 85025; 85610; 85652; 85730; 86141; 86703; 86704; 86706; 86708; 86803; 87040; 87340; 93005; 96365; 96375; 99291; G0378; J2405; J3490